=== PATIENT | female | born 1975 | race Caucasian/White ===

== ENCOUNTER 2017-03-11 18:25 | Emergency (ER) | payer OTHER ==
[~2017-03-11] VITALS: Ht 149.9 cm; Wt 83.9 kg
[2017-03-11 18:49] VITALS: BP_SYST 119
[2017-03-11] MEDS ORDERED: KETOROLAC TROMETHAMINE 60 MG/2 ML VIAL IM ONE (19:15)
[2017-03-11] MEDS ORDERED: HYDROcodone/ACETAMIN 10-325 MG TAB PO ONE (19:45)
[2017-03-11] MEDS ORDERED: HYDROmorphone 1 MG INJ. 1 MG/ML AMPUL IM ONE (20:15)
[2017-03-11] MEDS ORDERED: DIPHENHYDRAMINE INJ 50 MG/ML VIAL IM ONE (20:15)
[2017-03-11 20:39] VITALS: BP_SYST 131
== END 2017-03-11 20:39 | disposition home or self-care (01) ==
LOC: SED 18:25
DX: S89.91XA Unspecified injury of right lower leg, initial encounter (principal); X58.XXXA Exposure to other specified factors, initial encounter; Y93.89 Activity, other specified; Y92.89 Other specified places as the place of occurrence of the external cause; Y99.0 Civilian activity done for income or pay
CPT/HCPCS: 29515; 73590; 81025; 96372; 99284; J1170; J1200; J1885